=== PATIENT | female | born 1965 | race Caucasian/White ===

== ENCOUNTER 2020-08-23 06:56 | Day surgery (SDC) | payer OTHER ==
[2020-08-23] MEDS ORDERED: Sodium Chloride 0.9% 10 ML Syringe FLUSH PRN (07:00)
[2020-08-23] MEDS ORDERED: Lidocaine 1%/Sod Bicarbonate in NS 8.4% 1 ML Syringe IDERM PRN (07:00)
[2020-08-23] MEDS ORDERED: Lactated Ringers 1,000 ML IV SCH (07:00)
[2020-08-23] MEDS ORDERED: Lidocaine 1% 4 ML ONE (07:15)
[2020-08-23] MEDS ORDERED: Propofol 200 MG/20 ML SDV ONE (07:16)
[2020-08-23] MEDS ORDERED: Midazolam 1 MG/ML 2 ML SDV ONE (07:16)
[2020-08-23] MEDS ORDERED: Ondansetron 4 MG/2 ML SDV ONE (07:16)
[2020-08-23] MEDS ORDERED: fentaNYL 100 MCG/2 ML SDV ONE (07:16)
[2020-08-23] MEDS ORDERED: Ketamine 500 mg/10 ML MDV ONE (07:19)
--- NOTE | 2020-08-23 07:30 | PCM.PREANE ---
Preanesthetic Assessment - Procedure Proposed Procedure: hysteroscopy, d and c, polypectomuy - Anesthesia/Transfusion/Family Hx Anesthesia History: Prior Anesthesia Without Reaction Family History of Anesthesia Reaction: No Transfusion History: No Prior Transfusion(s) - Review of Systems General: No Symptoms Pulmonary: No Symptoms Cardiovascular: No Symptoms Gastrointestinal: No Symptoms Neurological: No Symptoms Other: Reports: Diabetes - Physical Assessment NPO Status Date: 08/22/20 NPO Status Time: 22:00 Vital Signs: Last Vital Signs Temp 97.9 F 08/23/20 07:00 Pulse 81 08/23/20 07:00 Resp 16 08/23/20 07:00 BP 132/69 08/23/20 07:00 Pulse Ox 97 08/23/20 07:00 Height: 5 ft 5 in Weight: 110.223 kg ASA Class: 3 Mental Status: Alert & Oriented x3 Airway Class: Mallampati = 1 Dentition: Reports: Normal Dentition Thyro-Mental Finger Breadths: 3 Mouth Opening Finger Breadths: 3 ROM/Head Extension: Full Lungs: Clear to Auscultation, Normal Respiratory Effort Cardiovascular: Regular Rate, Regular Rhythm - Lab Values: Laboratory Last Values Urine Color Yellow (Yellow) 08/23/20 06:58 Urine Appearance Clear (Clear) 08/23/20 06:58 Urine pH 6.0 (5.0-8.0) 08/23/20 06:58 Ur Specific [place] 1.025 (1.005-1.030) 08/23/20 06:58 Urine Protein 1+ (Negative) H 08/23/20 06:58 Urine Glucose (UA) Negative (Negative) 08/23/20 06:58 Urine Ketones Negative (Negative) 08/23/20 06:58 Urine Occult Blood Negative (Negative) 08/23/20 06:58 Urine Nitrite Negative (Negative) 08/23/20 06:58 Urine Bilirubin Negative (Negative) 08/23/20 06:58 Urine Urobilinogen 0.2 (0.2-1.0) 08/23/20 06:58 Ur Leukocyte Esterase 2+ (Negative) H 08/23/20 06:58 - Allergies Allergies/Adverse Reactions: Allergies Allergy/AdvReac Type Severity Reaction Status Date / Time Sulfa (Sulfonamide Allergy Rash Verified 08/22/20 14:35 Antibiotics) - Blood Blood Available: No - Acknowledgements Anesthesia Type Planned: General Anesthesia, MAC Pt an Appropriate Candidate for the Planned Anesthesia: Yes Alternatives and Risks of Anesthesia Discussed w Pt/Guardian: Yes Pt/Guardian Understands and Agrees with Anesthesia Plan: Yes PreAnesthesia Questionnaire HEENT History: Reports: Impaired Vision, Other (See Below) Other HEENT History: wears glasses Cardiovascular History: Reports: High Cholesterol Respiratory History: Reports: None Gastrointestinal History: Reports: Other (See Below) Other Gastrointestinal History: hyperbilirubinemia, lap band with removal Genitourinary History: Reports: Other (See Below) Other Genitourinary History: abnormal UA [employer] History: Reports: Other (See Below) Other OB/BYN History: cervical stenosis, D&C Musculoskeletal History: Reports: Gout (none for a couple years) Neurological History: Reports: None Psychiatric History: Reports: None Endocrine/Metabolic History: Reports: Diabetes, Type II, Obesity/BMI 30+ Hematologic History: Reports: None Immunologic History: Reports: None Oncologic (Cancer) History: Reports: None Dermatologic History: Reports: None - Infectious Disease History Infectious Disease History: Reports: None - Past Surgical History Head Surgeries/Procedures: Reports: None HEENT Surgical History: Reports: None Cardiovascular Surgical History: Reports: None Respiratory Surgical History: Reports: None GI Surgical History: Reports: None, Bariatric Procedure (15 years ago- and since then taken off a year later) Female Surgical History: Reports: D&C Male Surgical History: Reports: None Endocrine Surgical History: Reports: None Neurological Surgical History: Reports: None Musculoskeletal Surgical History: Reports: None Oncologic Surgical History: Reports: None Dermatological Surgical History: Reports: None - SUBSTANCE USE Tobacco Use Status *Q: Never Tobacco User Tobacco Use Within Last Twelve Months: No Second Hand Smoke Exposure: No Days Per Week of Alcohol Use: 1 Recreational Drug Use History: No - HOME MEDS Home Medications: Home Meds metFORMIN HCl [Metformin HCl] 1,000 mg PO BID 08/22/20 [History] - CURRENT (IN HOUSE) MEDS Current Meds: Current Medications Lactated Ringer's (Ringers, Lactated) 1,000 mls @ 125 mls/hr IV ASDIRECTED ALLISON Stop: 08/23/20 23:00 Lidocaine/Sodium Bicarbonate (Buffered Lidocaine 1% In Ns 8.4%) 0.25 ml IDERM ONETIME PRN PRN Reason: Prior to IV Start Stop: 08/23/20 18:00 Sodium Chloride (Saline Flush) 10 ml FLUSH ASDIRECTED PRN PRN Reason: Keep Vein Open Stop: 08/23/20 18:00 Discontinued Medications Fentanyl (Sublimaze) Confirm Administered Dose 100 mcg .ROUTE .STK-MED ONE Stop: 08/23/20 07:17 Lidocaine HCl (Xylocaine-Mpf 1%) Confirm Administered Dose 4 mls @ as directed .ROUTE .STK-MED ONE Stop: 08/23/20 07:16 Ketamine HCl (Ketalar) Confirm Administered Dose 500 mg .ROUTE .STK-MED ONE Stop: 08/23/20 07:20 Midazolam HCl (Versed 1 Mg/Ml) Confirm Administered Dose 2 mg .ROUTE .STK-MED ONE Stop: 08/23/20 07:17 Ondansetron HCl (Zofran) Confirm Administered Dose 4 mg .ROUTE .STK-MED ONE Stop: 08/23/20 07:17 Propofol (Diprivan 20 Ml) Confirm Administered Dose 200 mg .ROUTE .STK-MED ONE Stop: 08/23/20 07:17
[2020-08-23] MEDS ORDERED: fentaNYL 100 MCG/2 ML SDV IVPUSH PRN (08:52)
[2020-08-23] MEDS ORDERED: HYDROmorphone 0.5 MG/0.5 ML Syringe IVPUSH PRN (08:52)
[2020-08-23] MEDS ORDERED: Ondansetron 4 MG/2 ML SDV IVPUSH PRN (08:52)
[2020-08-23] MEDS ORDERED: Ketorolac 30 MG/ML SDV ONE (08:59)
[2020-08-23] MEDS ORDERED: ePHEDrine 50 MG/ML SDV ONE (09:00)
[2020-08-23] MEDS ORDERED: Lactated Ringers 1,000 ML ONE (09:22)
--- NOTE | 2020-08-23 09:48 | PCM.POSTAN ---
POST ANESTHESIA ASSESSMENT - MENTAL STATUS Mental Status: Alert, Oriented - VITAL SIGNS Vital Signs: Last Vital Signs Temp 97.9 F 08/23/20 07:00 Pulse 81 08/23/20 07:00 Resp 16 08/23/20 07:00 BP 132/69 08/23/20 07:00 Pulse Ox 97 08/23/20 07:00 0941 87 16 97.0 124/63 93% - RESPIRATORY Respiratory Status: Respiratory Rate WNL, Airway Patent, O2 Saturation Stable, Supplemental Oxygen - CARDIOVASCULAR CV Status: Pulse Rate WNL, Blood Pressure Stable - GASTROINTESTINAL GI Status: No Symptoms - PAIN Pain Score: 0 - POST OP HYDRATION Hydration Status: Adequate & Stable
--- NOTE | 2020-08-23 09:50 | PCM.OPNOTE ---
- General Post-Op/Procedure Note Date of Surgery/Procedure: 08/23/20 Operative Procedure(s): Hysteroscopy with dilation and curettage and polypectomy Findings: Grossly normal-appearing endometrial cavity with normal-appearing bilateral ostia present. Several polyps in the posterior and left posterior wall of the endometrial cavity near the uterine fundus. Pre Op Diagnosis: Postmenopausal bleeding, endometrial polyp Post-Op Diagnosis: Same Anesthesia Technique: General LMA Primary Surgeon: Anjel Pena Anesthesia Provider: Kirstie Smith Neonatal Pediatric Nurse: Sarah Juan I (PA student) Reason Neonatal Pediatric Nurse Was Necessary: Education and learning Pathology: Endometrial polyp fragments and endometrial curettings sent in separate containers Fluid Replacement, Intraop: 1,000 Output, Urine Amount: 0 (Voided prior to procedure) EBL in mLs: 30 Complications: None Condition: Good Free Text/Narrative:: Hysteroscopy fluids in: 900 mL Hysteroscopy fluids out: 850 mL Length of procedure: 36 minutes The patient was counseled on the risks, benefits and alternatives of the surgery and consents were reviewed. The patient was taken back to [facility] and placed under general anesthesia with laryngeal mask airway that was placed without difficulty. She was placed in the dorsal lithotomy position. She was prepped and draped in the normal sterile fashion. A weighted speculum was then placed and the cervix was visualized. A single-tooth tenaculum was placed on the anterior lip of the cervix. The cervix was dilated to a 15 [place] Ped[employer] dilator. The hysteroscope was introduced into the cervix and advanced to the uterine fundus. The tubal ostia were visualized bilaterally with notation of multiple polyps on the posterior and left posterior wall of the endometrium near the uterine fundus. The hysteroscope was then removed. A polyp forceps was introduced into the cervix and advanced to the uterine fundus. The polyp forceps were used to remove several fragments of the endometrial polyps. The polyp fragments were sent for pathology. The camera was reinserted and noted to have additional areas of polyps present and again a polyp forceps was used to remove these fragments. The hysteroscope was then inserted and the major portions of the polyp appeared to be removed at this time. A sharp curette was introduced into the uterine cavity, and curettage of the entire uterine cavity was performed. The curettings were sent to pathology. The hysteroscope was reinserted and advanced to the uterine fundus. The site of the polyp attachment was noted to have good hemostasis and appeared to have a small basal attachment remaining. The single-tooth tenaculum was removed from the anterior lip of the cervix. Good hemostasis was noted. The procedure was complete at this time. All instruments were removed from the vagina. The patient tolerated the procedure well. All needle and sponge counts were correct x 2. The patient was taken to the recovery room in a stable condition. The patient will be discharged home when she has minimal bleeding, pain is well controlled with oral medications and she is voiding normally. She will follow up in the clinic in 1-2 weeks or earlier as needed. Review of images from case IMG 001: Left tubal ostia IMG 002: Right tubal ostia present. IMG 003: Posterior wall endometrial polyp IMG 004: Left posterior and posterior wall endometrial polyp IMG 005: View of endometrial polyp attachment site with only basal portion of the polyp stalk present and hemostasis noted IMG 006: View of posterior and left posterior endometrial cruz with polyp stock area present and hemostasis noted Anjel Pena MD 9:50 AM 08/23/2020
--- NOTE | 2020-08-23 10:40 | PCM48HPAN ---
Post Anesthesia Note - EVALUATION WITHIN 48HRS OF ANESTHETIC Vital Signs in Normal Range: Yes Patient Participated in Evaluation: Yes Respiratory Function Stable: Yes Airway Patent: Yes Cardiovascular Function Stable: Yes Hydration Status Stable: Yes Pain Control Satisfactory: Yes Nausea and Vomiting Control Satisfactory: Yes Mental Status Recovered: Yes Vital Signs: Last Vital Signs Temp 36.5 C 08/23/20 10:10 Pulse 80 08/23/20 10:25 Resp 11 L 08/23/20 10:25 BP 115/66 08/23/20 10:25 Pulse Ox 95 08/23/20 10:25
== END 2020-08-23 11:07 | disposition home or self-care (01) ==
LOC: JD.SDS 06:56
PROVIDERS: ATTEND Obstetrics & Gynecology
DX: N84.0 Polyp of corpus uteri (principal); E11.9 Type 2 diabetes mellitus without complications; E80.6 Other disorders of bilirubin metabolism; E66.9 Obesity, unspecified; E78.00 Pure hypercholesterolemia, unspecified; Z01.812 Encounter for preprocedural laboratory examination; Z20.828 Contact with and (suspected) exposure to other viral communicable diseases; Z88.2 Allergy status to sulfonamides; Z79.899 Other long term (current) drug therapy; Z79.84 Long term (current) use of oral hypoglycemic drugs; Z98.84 Bariatric surgery status; Z68.41 Body mass index [BMI] 40.0-44.9, adult
CPT/HCPCS: 58558; 81003; 82962; J1885; J2001; J2250; J2405; J2704; J3010; J7120; 00952